=== PATIENT | female | born 1970 | race Caucasian/White ===

== ENCOUNTER 2016-10-14 20:41 | Emergency (ER) | payer BC ==
[~2016-10-14] VITALS: Ht 162.6 cm; Wt 77.1 kg
--- NOTE | ~2016-10-14 | CR142 ---
[facility] A Service [facility] RADIOLOGY TEXT RESULTS PATIENT: LUCAS GRANADOS LOCATION: SED : 74 UNIT #: [id number] AGE: [address]: Sebastien Jaime MD SEX: F ORDER DR: [id number] [place] [id number] MR#: [id number] Acc #: [id number] NAME: LUCAS GRANADOS : 1970 SEX: F STUDY DATE/TIME: 10/14/2016 21:13 UNIT: SED ROOM: STUDY DESCRIPTION: CR Hand Min 3 Views Rt Attending Physician: Sebastien Jaime M.D. Ordering Physician: Sebastien Jaime M.D. Primary Care Physician: No Primary Care Physician MEDICAL IMAGING REPORT This report is preliminary unless electronic signature is present. EXAM Right hand 10/14/2016. INDICATIONS Puncture wound from a dog bite that occurred yesterday afternoon. Swelling is getting worse. Pain in the right hand. TECHNIQUE 3 views. COMPARISON No comparisons. FINDINGS No acute fracture. Probable mild soft tissue swelling involving the webspace of the first and second digits. No focal erosive change or retained opaque foreign body. Tiny nonspecific osseous density adjacent to the base of the proximal phalanx third digit, likely represents an accessory ossicle. IMPRESSION 1. Soft tissue swelling, but no retained opaque foreign body or acute fracture. Dictated by... Jose Philippe M.D. THIS IS AN ELECTRONICALLY VERIFIED REPORT Jose Philippe M.D. at 10/15/2016 2:22 PM JLY/gz TD: 10/15/2016 10:54 [facility] A [facility] RADIOLOGY TEXT RESULTS PATIENT: LUCAS GRANADOS LOCATION: SED : 74 UNIT #: [id number] AGE: [address]: Sebastien Jaime MD SEX: F ORDER DR: JOB #: [id number] MEDICAL IMAGING REPORT Page 1 of 1
[2016-10-14] MEDS ORDERED: NO MEDICATIONS (20:59)
== END 2016-10-14 22:28 | disposition home or self-care (01) ==
LOC: SED 20:41
DX: S61.401A Unspecified open wound of right hand, initial encounter (principal); Z23 Encounter for immunization; W54.0XXA Bitten by dog, initial encounter; Y92.009 Unspecified place in unspecified non-institutional (private) residence as the place of occurrence of the external cause
CPT/HCPCS: 73130; 90471; 90715; 99283